=== PATIENT | male | born 2000 | race African-American/Black ===

== ENCOUNTER → 2024-07-24 | Emergency (ER) | payer MEDICAID ==
[~2024-07-24] VITALS: Ht 185.4 cm; Wt 114.0 kg
[~2024-07-24] MED LIST: IBUP-2029 MT
[2024-07-24 09:08] VITALS: O2SAT 72
[2024-07-24] MEDS: IBUPROFEN 600MG TABLET PO ONE (10:33)
[2024-07-24 10:34] VITALS: BP 132/70; PULSE 68; RESP 16; TEMP 36.83628; O2SAT 72
== END ==
LOC: ER 09:00
DX: M25.511 Pain in right shoulder (principal)
CPT/HCPCS: 73030; 99283